=== PATIENT | male | born 1985 | race Caucasian/White ===

== ENCOUNTER → 2018-01-24 14:22 | Outpatient (CLI) | payer MEDICAID, SELFPAY | PROVIDERS: PCP Family Medicine; Visit Provider Family Medicine | DX: R00.1 Bradycardia, unspecified (principal) | CPT/HCPCS: 93005; 93225; 93226 ==

== ENCOUNTER → 2018-02-08 10:56 | Outpatient (CLI) | payer MEDICAID, SELFPAY ==
--- NOTE | 2018-02-08 11:00 | CA_ITS ---
PROCEDURE: 2-D M-mode and color Doppler study INDICATIONS FOR THE TEST: Chest pain COPD Heart Murmur+ Tobacco Smoking Palpitations+ Fatigue Syncope Edema Hypertension Diabetes Mellitus Rheumatic Fever SOB RAMIREZ+Obesity Hyperlipidemia Family History HD+ Additional History Bradycardia, Hx of Asthma PATIENT INFORMATION HEIGHT: 69 WEIGHT: 199 GENDER: Male B/P: 144/81 2-D/M-MODE INTERPRETATION: 2-D MEASUREMENTS OBSERVED VALUES IN CMS Right Ventricular Dimension (RVDd) 2.4 Interventricular Septum (Thickness)(IVsd) 0.9 Left Ventricular Internal Dimensions(LVIDd) 3.4 Left Ventricular Posterior Wall (Thickness)(LVPWd) 0.9 Aortic Root 3.5 Aortic Cusp Separation 2.7 Left Atrial Dimensions (LAD) 3.5 2D 1. Left atrium is normal size, left ventricle is normal size, there is no concentric left ventricular hypertrophy, visually estimated ejection fraction 55% with no obvious regional wall motion abnormality. 2. The right atrium and right ventricle are normal size and contractility. 3. The aortic, mitral and tricuspid valve is structurally normal. 4. The pulmonic valve is poorly visualized 5. No significant pericardial effusion noted DOPPLER INTERROGATION: Doppler interrogation of the aortic, mitral and tricuspid valvular presence of mild mitral and tricuspid regurgitation, tricuspid and jet seen insufficient for calculation of the right ventricular systolic pressure, diastolic parameters are within normal range. CONCLUSION: 1. Normal left ventricular size, preserved left ventricular systolic function, visually estimated ejection fraction 55% with no obvious regional wall motion abnormality, diastolic parameters are within normal range. 2. Mild mitral and tricuspid regurgitation. 3. No significant pericardial effusion noted.
== END ==
PROVIDERS: PCP Family Medicine; Visit Provider Internal Medicine
DX: R00.1 Bradycardia, unspecified (principal)
CPT/HCPCS: 93017; 93306

== ENCOUNTER → 2018-03-26 19:09 | Outpatient (CLI) | payer MEDICAID, SELFPAY | PROVIDERS: PCP Family Medicine; Visit Provider Internal Medicine Cardiovascular Disease | DX: G47.33 Obstructive sleep apnea (adult) (pediatric) (principal); R06.83 Snoring | CPT/HCPCS: 95806 ==

== ENCOUNTER → 2019-09-12 14:48 | Outpatient (CLI) | payer SELFPAY ==
--- NOTE | 2019-09-12 15:00 | XR_ITS ---
PROCEDURE: XR HAND LT MIN 3V CLINICAL INDICATION: 4th MC FX Follow-up fracture COMPARISON: XR HAND LT MIN 3V from 08/31/2019 FINDINGS: No change mildly displaced fracture involving the proximal to mid shaft of the 4th metacarpal. Fracture line is still visible. No significant callus formation. IMPRESSION: No change 4th metacarpal fracture Dictated by: Crow Bowers MD 09/12/2019 15:19 Electronically signed by Crow Bowers MD in [place] 09/12/2019 15:19
== END ==
PROVIDERS: PCP Family Medicine; Visit Provider Orthopaedic Surgery
DX: S62.92XA Unspecified fracture of left hand, initial encounter for closed fracture (principal)
CPT/HCPCS: 73130

== ENCOUNTER → 2019-09-27 09:22 | Outpatient (CLI) | payer SELFPAY ==
--- NOTE | 2019-09-27 09:36 | XR_ITS ---
PROCEDURE: XR HAND LT MIN 3V CLINICAL INDICATION: 4th MC FX COMPARISON: XR HAND LT MIN 3V from 08/31/2019 XR HAND LT MIN 3V from 09/12/2019 FINDINGS: The appearance of the oblique fracture through the proximal midshaft of the 4th metacarpal bone is stable. There is no callus formation or change in the alignment. The remainder of the left hand is stable and normal. IMPRESSION: No significant change. Dictated by: Dami Benito 09/27/2019 09:47 Electronically signed by Dami Benito in [place] 09/27/2019 09:47
== END ==
PROVIDERS: PCP Family Medicine; Visit Provider Orthopaedic Surgery
DX: S62.92XA Unspecified fracture of left hand, initial encounter for closed fracture (principal)
CPT/HCPCS: 73130

== ENCOUNTER 2019-09-30 09:24 | Outpatient (RCR) | payer SELFPAY ==
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
== END 2019-09-30 09:30 | disposition home or self-care (01) ==
LOC: OT 09:24
PROVIDERS: Visit Provider Orthopaedic Surgery
DX: S62.92XA Unspecified fracture of left hand, initial encounter for closed fracture (principal)
CPT/HCPCS: 97166; 97760

== ENCOUNTER → 2019-10-21 09:10 | Outpatient (CLI) | payer SELFPAY ==
--- NOTE | 2019-10-21 09:14 | XR_ITS ---
PROCEDURE: XR HAND LT MIN 3V CLINICAL INDICATION: 4th MC FX COMPARISON: XR HAND LT MIN 3V from 08/31/2019 XR HAND LT MIN 3V from 09/12/2019 XR HAND LT MIN 3V from 09/27/2019 FINDINGS: There has been some interval callus formation of healing with less discrete fracture line at the fracture of the 4th metacarpal. Overall bony alignment and positioning remains near anatomical. There is no acute fracture or dislocation. The joint spaces are well-preserved. No significant degenerative/arthritic changes. No erosive changes evident. Other findings:None. IMPRESSION: Some interval healing of previously noted 4th metacarpal fracture. Residual fracture line indicating lack of complete bony healing at this time is noted. Dictated by: Kristian Krishnamurthy 10/21/2019 12:14 Electronically signed by Kristian Krishnamurthy in [place] 10/21/2019 12:14
== END ==
PROVIDERS: PCP Family Medicine; Visit Provider Orthopaedic Surgery
DX: S62.92XA Unspecified fracture of left hand, initial encounter for closed fracture (principal)
CPT/HCPCS: 73130

== ENCOUNTER → 2020-05-07 10:05 | Outpatient (CLI) | payer MEDICAID, SELFPAY | PROVIDERS: PCP Family Medicine; Visit Provider Family Medicine | DX: Z03.818 Encounter for observation for suspected exposure to other biological agents ruled out (principal) | CPT/HCPCS: U0003 ==

== ENCOUNTER 2020-10-05 12:45 | Emergency (ER) | payer OTHER, SELFPAY ==
[2020-10-05 13:25] VITALS: BP 133/81; PULSE 76; RESP 19; TEMP 36.6; O2SAT 100; BMI 30.4
--- NOTE | 2020-10-05 13:40 | HMH.EDUTC ---
[facility] [place] Disposition Clinical Impression: Encounter for laboratory testing for COVID-19 virus Disposition: Home, Self-Care Condition on Discharge: Good Instructions: DI for Cough -- Adult, DI for COVID-19 (Suspected or Confirmed ), Coronavirus Disease 2019, Preventing the Spread of Coronavirus Discharge Instructions Additional Instructions: *Monitor Temp, Over the counter Motrin or Tylenol as directed/as needed Tylenol every 4 hours and Motrin every 6 hours (as long as your family doctor has told you that you can take it) for fever or pain. and straight to ER if unable to lower temp less than 101.0 after medication given *Warm salt water gargles may help to soothe the throat *Throat Lozenges *Warm fluids like tea with honey may help to soothe the throat *Sleep elevated *Humidifier/Vaporizer *Flonase 2 sprays in each nostril daily but be aware that it may take 2-3 days before you notice improvement *Bromfed may cause drowsiness. Know how it effects you (your child) before driving, caring for small child, or sending your child to school. Not other antihistamines/allergy medications while taking bromfed Your throat swab was sent for culture. Those results are typically sent to your primary care. Be sure to follow up in 2-3 days with your family doctor/primary care physician if no improvement so they can review those result and treat if necessary. If you don?t have a primary care doctor, I recommend you get one but in the mean time, you will have to return to a walk in clinic Follow up IMMEDIATELY for new or worsening symptoms or no Noticeable improvement over the next 48-72 hours. 911 for difficulty breathing or swallowing You were tested for today for COVID19 your test result should be back in the next 24-48 hours, you may call to the [facility] to see if your test results are back in the next 48 hours [phone] [facility] hours are 9am-9pm You was given a handout with instructions for Self Quarantine and Self isolation for while you wait on test results and what to do if they are positive If you are positive the Health Dept will be contacting you also Prescriptions: Fluticasone Propionate [Flonase 50mcg nasal spray 16gm] 1 spr NS DAILY #1 bottle Transmission Status: Pending to [id number] guaiFENesin [Mucinex 600mg tablet] 600 mg PO Q12H PRN #20 tab.[id number] PRN Reason: Cough Transmission Status: Pending to [facility] Referrals: Josue Cueto MD [Primary Care Provider] - Forms: Work/School Release Time of Disposition: 13:52 Medical Decision Making - Amos Inquiry Pt receiving controlled substance: No Amos was queried for this patient: No Vital Signs: 10/05/20 13:25 Temperature 97.8 F Temperature Source Oral Pulse Rate [Right Brachial] 76 Respiratory Rate 19 Blood Pressure [Right Arm] 133/81 Blood Pressure Mean [Right Arm] 98 Blood Pressure Source [Right Arm] Automatic Cuff Blood Pressure Position [Right Arm] Sitting 02 Sat by Pulse Oximetry 100 Oxygen Delivery Method Room Air Orders (Tests/Meds): ORDERS Category Date Time Status Covid-19 Nasal PCR ([facility] [place]) Routine Lab 10/05/20 13:28 Received [facility] [place] HPI - General Stated complaint: cough,headache Time Seen by Provider: 10/05/20 13:40 Mode of Arrival: Ambulatory Source of Information: Patient Limitations: No Limitations Description of Symptoms (Recalled from Triage Doc. by RN): PATIENT REQUESTING COVID TEST. C/O COUGH AND HEADACHE. 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
[2020-10-05 14:07] VITALS: BP 133/81; PULSE 76; RESP 19; TEMP 36.6; O2SAT 100
--- NOTE | 2020-10-06 15:46 | PC.NURSE ---
PATIENT NOTIFIED OF POSITIVE COVID TEST AT THIS TIME
== END 2020-10-05 14:09 | disposition home or self-care (01) ==
PROVIDERS: Emergency Provider Nurse Practitioner; PCP Family Medicine
DX: U07.1 COVID-19 (principal)
CPT/HCPCS: 99202; G0463; U0003

== ENCOUNTER 2023-11-19 08:38 | Emergency (ER) | payer SELFPAY ==
[2023-11-19 08:55] VITALS: BP 155/96; PULSE 74; RESP 18; TEMP 37.1; O2SAT 100; BMI 31.0
[2023-11-19 09:03] LABS: Apearance,Urine Clear (Clear); Bilirubin,Urine Negative (Negative); Blood, Urine Negative (Negative); Color,Urine Dark Yellow (Yellow); Glucose,Urine (UA) Negative (Negative); Ketones,Urine Negative (Negative); PH,Urine 5.5 (5.0-8.5); Protein,Urine Negative (Negative); UTC Leukocyte Esterase,Urine Negative (Negative); UTC Nitrate,Urine Negative (Negative); Urobilinogen,Urine 0.2 EU/dl (0.2)
--- NOTE | 2023-11-19 09:26 | ED_ITS ---
Discharge Plan Disposition Patient Disposition: Home, Self-Care Condition: Good Prescriptions Prescriptions: New methocarbamol 500 mg tablet 500 mg PO TID PRN (Reason: muscle spasm) Qty: 15 0RF ibuprofen 600 mg tablet 600 mg PO Q6HP PRN (Reason: Moderate Pain) Qty: 20 0RF No Action fluticasone propionate 120 SPR/BOT bottle 1 spr NS DAILY Qty: 1 0RF Rx Instructions: each nostril daily Referrals Follow up/Referrals: Josue Cueto MD [Primary Care Provider] - See instructions Activity Restrictions/Add. Instructions Additional Instructions/Restrictions: *Ibuprofen cathie 6 hours with meal as needed for pain/inflammation *Remember you had a Toradol shot in the clinic today, which is similar to Motrin *Not additional anti-inflammatory like motrin, aleve, advil with the above amount of ibuprofen. You can still take Tylenol every 4 hours as needed if you need something else for pain *Ice 20 minutes every 2 hours for the first 48 hours after the initial injury followed by moist heat every 20 minutes 3-4 times a day to affected area *Muscle relaxer every 8 hours as needed for muscle spasms but remember, it WILL cause drowsiness You cannot take it and drive, operate machinery or care for small children. *Keep this area active, no movement leads to more stiffness, However take it easy and avoid heavy lifting pushing or pulling *Follow up with you family doctor if no improvement for further treatment Clinical Impressions Clinical Impression: Low back pain Qualifiers: Chronicity: unspecified Back pain laterality: bilateral Sciatica presence: without sciatica Qualified Code(s): M54.50 - Low back pain, unspecified Instructions Patient Instructions: DI for Low Back Pain, Methocarbamol Discharge ED Provider: Renee Rueda [facility] General Stated complaint: lower back pain Mode of Arrival: Ambulatory Source of Information: Patient Limitations: No Limitations Time Seen by Provider: 11/19/23 09:26 Description of Symptoms (Recalled from Triage Doc. by RN): Pt's symptoms are bilateral flank pressure, and bubbly urine . 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 not sure if he may have a kidney infection or just over worked his back so he came in to get it checked Denies loss of control of bowel or bladder Related Data Previous Rx's Medication Instructions Recorded fluticasone propionate 50 1 spr NS DAILY ##1 10/05/20 mcg/actuation nasal spray,suspension ibuprofen 600 mg tablet 600 mg PO Q6HP PRN Moderate Pain 11/19/23 #20 tabs methocarbamol 500 mg tablet 500 mg PO TID PRN muscle spasm #15 11/19/23 tabs Allergies Allergy/AdvReac Type Severity Reaction Status Date / Time No Known Allergies Allergy Verified 11/19/23 09:08 Worker's Comp Is this a Worker's Comp case?: No PFSH PFS Disclaimer: The information contained in this section may have been updated after the patient was seen, as this information can be updated by other users. Social History Smoking Status: Never smoker alcohol intake: never substance use type: denies use current occupational status: other Travel in the last 8 weeks: None ROS Obtained: Yes All systems reviewed & no additional complaints except as documented and Yes Systems reviewed as appropriate & no additional complaints except as documented Constitutional Constitutional: Reports system reviewed and no additional complaints, except as documented and Reports as per HPI ENT Ears, Nose, Mouth, and Throat: Reports system reviewed and no additional complaints, except as documented and Reports as per HPI Cardiovascular Cardiovascular: Reports system reviewed and no additional complaints, except as documented and Reports as per HPI Respiratory Respiratory: Reports system reviewed and no additional complaints, except as documented and Reports as per HPI Gastrointestinal Gastrointestingal: Reports system reviewed and no additional complaints, except as documented and as per HPI Genitourinary Male Genitourinary: Reports system reviewed and no additional complaints, except as documented, Reports as per HPI, Denies hematuria, Denies testicular pain, Denies urinary frequency, Denies urinary hesitancy, Denies urinary urgency and Reports other (urine had bubbles in it) Musculoskeletal Musculoskeletal: Reports system reviewed and no additional complaints, except as documented, Reports as per HPI and Reports back pain Physical Exam General General appearance: alert and in no apparent distress ENT ENT exam: Present mucous membranes moist Respiratory Respiratory exam: Present normal lung sounds bilaterally; Absent respiratory distress or wheezes Cardiovascular Cardiovascular exam: Present regular rate, normal rhythm and normal heart sounds Abdominal Exam Abdominal exam: Present soft and normal bowel sounds; Absent distention or tende rness Back Exam Back exam: Present tenderness Back 1 view image: 1. reports achy like pressure pain denies radiation of pain and denies loss of control of bowel or bladder Neurological Exam Neurological exam: Present alert, oriented X3 and normal gait Medical Decision Making Amos Inquiry Pt receiving controlled substance: No Amos was queried for this patient: No Vital Signs: 11/19/23 08:55 Temperature 98.7 F Temperature Source Oral Pulse Rate [Right Radial] 74 Respiratory Rate 18 Blood Pressure [Right Arm] 155/96 H Blood Pressure Mean [Right Arm] 115 Blood Pressure Source [Right Arm] Automatic Cuff Blood Pressure Position [Right Arm] Sitting 02 Sat by Pulse Oximetry 100 Oxygen Delivery Method Room Air Lab Data Lab results reviewed: Yes I reviewed the patient's lab results. Lab Results 11/19/23 09:02: Urine Color Dark yellow, Urine Appearance Clear, Urine pH 5.5, Ur Specific Tiger 1.020, Urine Protein Negative, Urine Glucose (UA) Negative, Urine Ketones Negative, Urine Blood Negative, Urine Nitrate Negative, Urine Bilirubin Negative, Urine Urobilinogen 0.2, Ur Leukocyte Esterase Negative Orders (Tests/Meds): ORDERS Category Date Time Status Urine Culture Stat Micro 11/19/23 09:13 Ordered
[2023-11-19 09:42] VITALS: BP 155/96; PULSE 74; RESP 18; TEMP 37.1; O2SAT 100
== END 2023-11-19 09:41 | disposition home or self-care (01) ==
PROVIDERS: Emergency Provider Nurse Practitioner; PCP Family Medicine
DX: M54.50 Low back pain, unspecified (principal)
CPT/HCPCS: 81003; 87086; 99204; 99212; G0463

== ENCOUNTER 2025-05-15 16:17 | Outpatient (CLI) | payer SELFPAY ==
--- NOTE | 2025-05-15 | XR_ITS ---
FINAL REPORT CLINICAL HISTORY: ACUTE LEFT SIDED LOW BACK PAIN WITHOUT SCIATICA FINDINGS: AP and lateral views of the lumbar spine were obtained. There is no prior exam for comparison. There is no acute fracture or malalignment. Vertebral body height is preserved. Mild degenerative disease at L1-2. No acute paraspinal abnormality. IMPRESSION: No acute osseous abnormality of the lumbar spine. Reviewed, Interpreted and Dictated by Kimi Butler MD Transcribed by Ginger Houston Authenticated and [facility]
--- OUTSIDE RECORDS SUMMARY | 2025-05-15 16:22 | XMS_ITS | Clinical Summary ---
Author Organization [facility] Address [address] [place] [address] Care Team Providers Care Wireworker Name Role Phone Rinku Cueto MD Primary Care Provider [phone] Allergies No known active allergies Medications No known medications Social History Tobacco Use Types Packs/Day Years Used Date Smoking Tobacco: Never Alcohol Use Standard Drinks/Week Comments Yes 0 (1 standard drink = 0.6 oz pur e alcohol) occ Sex and Gender Information Value Date Recorded Sex Assigned at Not on file Legal Sex Male 7:15 PM EST Gender Identity Not on file Sexual Orientation Not on file Last Filed Vital Signs Vital Sign Reading Time Taken Comments Blood Pressure 165/88 10/02/2011 1:31 AM EST Pulse 90 10/02/2011 1:31 AM EST Temperature 36.2 C (97.2 F) 10/02/2011 1:31 AM EST Respiratory Rate 16 10/02/2011 1:31 AM EST Oxygen Saturation 96% 10/02/2011 1:31 AM EST Inhaled Oxygen Concentration - - Weight 95.3 kg (210 lb) 10/02/2011 1:31 AM EST Height 175.3 cm (5' 9 ) 10/02/2011 1:31 AM EST Body Mass Index 31.01 10/02/2011 1:31 AM EST Plan of Treatment Not on file Care Teams Wireworker Relationship Specialty Start Date End Date Rinku Cueto MD [address] [place] [facility] [address] [place] [address] PCP - General Family Medicine 10/02/11
--- OUTSIDE RECORDS SUMMARY | 2025-05-15 16:22 | XMS_ITS | Clinical Summary ---
Author Organization Healthcare Address [address] [id number] Care Team Providers Care Public Relations Name Role Phone Unavailable Primary Care Provider Unavailabl e Social History Tobacco Use Types Packs/Day Years Used Date Smoking Tobacco: Never Assessed Sex and Gender Information Value Date Recorded Sex Assigned at Not on file Legal Sex Male 8:02 PM EDT Gender Identity Not on file Sexual Orientation Not on file Last Filed Vital Signs Vital Sign Reading Time Taken Comments Blood Pressure - - Pulse - - Temperature - - Respiratory Rate - - Oxygen Saturation - - Inhaled Oxygen Concentration - - Weight 99.3 kg (219 lb) 12/11/2009 11:42 AM EST Height 175.3 cm (5' 9 ) 12/11/2009 11:42 AM EST Body Mass Index 32.34 12/11/2009 11:42 AM EST Plan of Treatment Health Maintenance Due Date Last Done Comments [facility]-Depression Screening 1987 [facility]-Infant/Child/Adol SDOH Screenings 1987 [facility]-Varicella Vaccines (1 of 2 - 13+ 2-dose series) 2000 [facility]- SDOH Screenings 2005 [facility]-Adult SDOH Screenings 2005 [facility]-DTaP,Tdap,and Td Vaccine s (1 - Tdap) 2006 [facility]-Hepatitis B Vaccines (1 of 3 - 19+ 3-dose series) 2006 HPV Vaccines (1 - 3-dose SCD M series) 2014 [id number] Vaccine (1 - 20 24-25 season) 2024 [facility]-Influenza Vaccine (#1) 2025 [facility]-Zoster Vaccines (1 of 2) 2037 [facility]-HIB Vaccines Aged Out No longer e ligible based on patient's age to complete this topic [facility]-Hepatitis A Vaccines Aged Out No longer eligible based on patient's age to complete this topic [facility]-IPV Vaccines Aged Out No longer e ligible based on patient's age to complete this topic [facility]-Pneumococcal Vaccine: Pediatrics (0 to 5 Years) and At-Risk Patients (6 to 49 Years) Aged Out No long er eligible based on patient's age to complete this topic [facility]-Rotavirus Vaccines Aged Out No lo nger eligible based on patient's age to complete this topic
== END 2025-05-15 23:59 | disposition home or self-care (01) ==
LOC: RAD 16:20
PROVIDERS: PCP Family Medicine; Visit Provider Family Medicine
DX: M54.50 Low back pain, unspecified (principal)
CPT/HCPCS: 72100